=== PATIENT | female | born 1945 | race Caucasian/White ===

== ENCOUNTER 2018-04-29 17:01 | Inpatient (IN) ==
--- NOTE | 2018-04-29 17:33 | ED ---
HPI General Chief Complaint: Arrhythmia/Palpitations Stated Complaint: Cardiac/Phy Sent Time Seen by Provider: 04/29/18 17:15 Source: patient, family and old records reviewed Mode of arrival: EMS Limitations: no limitations History of Present Illness HPI narrative: the patient is a 72-year-old female with past medical history significant for Prinzmetal angina, CAD and internal mammary artery bypass, carotid artery stenosis, hyperlipidemia, HTN, mitral regurgitation and PAD with claudication presenting after she was seen at her salesperson burial needs's office today. Dr. Gannon referred her to the ED due to symptomatic bradycardia in his office. She was advised to hold her Cardizem however she did not take neither her Cardizem or her lisinopril today. Patient on arrival with a blood pressure of 209/93 and a pulse of 45 bpm MD complaint: irregular heart beat (slow hear rate with dizziness) Onset (ago): unknown Duration: now resolved Severity: similar to previous episodes Context: occurred during rest Associated symptoms: near-syncope Related Data Home Medications Medication Instructions Recorded Confirmed clopidogrel [Plavix] 75 mg PO DAILY 04/29/18 04/29/18 lisinopril 20 mg PO DAILY 04/29/18 04/29/18 oxycodone-acetaminophen [Percocet] 1 tab PO Q6H PRN 04/29/18 04/29/18 Previous Rx's Medication Instructions Recorded atorvastatin 20 mg PO HS tab 05/01/18 Allergies Allergy/AdvReac Type Severity Reaction Status Date / Time levofloxacin AdvReac Severe FEEL ILL Verified 04/29/18 19:15 niacin AdvReac Severe Back Pain Verified 04/29/18 19:15 CRESTOR AdvReac Severe Back Pain Uncoded 04/29/18 19:15 VYTORIN AdvReac Severe Back Pain Uncoded 04/29/18 19:15 Review of Systems ROS: all other systems reviewed are negative PMFSH History History Provided By: Patient Medical History Medical History CAD (coronary artery disease) (Acute) High cholesterol (Acute) Hypertension (Acute) Peripheral vascular disease (Acute) Prinzmetal's angina (Acute) Surgical History Surgical History History of appendectomy (Acute) History of cardiac cath (Acute) History of open heart surgery (Acute) Family History Family History Other Coronary artery disease Social History Social History Substance History: No History of Abuse Second Hand Smoke Exposure: No Smoking Status: Former smoker Tobacco Type: Cigarettes How Often Do You Have a Drink Containing Alcohol: Never Recent Travel in [facility] within the Last 8 Weeks: No Recent Out of Country Travel within the Last 8 Weeks: No Exam Narrative Exam Narrative: GENERAL: Alert and oriented in no distress SKIN: Focused skin assessment warm/dry. HEAD: Atraumatic. Normocephalic. EYES: Pupils equal and round. No scleral icterus. No injection or drainage. ENT: No nasal bleeding or discharge. Mucous membranes pink and moist. NECK: Trachea midline. No JVD. CARDIOVASCULAR: Regular rate and rhythm. No murmur appreciated. RESPIRATORY: No accessory muscle use. Clear to auscultation. Breath sounds equal bilaterally. GASTROINTESTINAL: Abdomen soft, non-tender, nondistended. Hepatic and splenic margins not palpable. MUSCULOSKELETAL: No obvious deformities. No clubbing. No cyanosis. No edema. NEUROLOGICAL: Awake and alert. No obvious cranial nerve deficits. Motor grossly within normal limits. Normal speech. PSYCHIATRIC: Appropriate mood and affect; insight and judgment normal. Course Hospital Course: Patient with elevated blood pressure and low heart rate not able to receive beta blockers or calcium channel blockers. We do not have hydralazine in formulary in this hospital. We will give clonidine and if blood pressure does not improve we will give her some Vasotec. Reevaluation(s) Reevaluation #1: Repeat blood pressure 199/79 on the right 179/74 on the left. Patient without any chest pain, no discomfort in the epigastric area no back pain. Time: 18:33 Initial Documented Vital Signs Temperature 98.0 F 04/29/18 17:04 Pulse Rate 45 L 04/29/18 17:04 Respiratory Rate 12 04/29/18 17:04 Blood Pressure 219/93 H 04/29/18 17:04 Pulse Oximetry 98 04/29/18 17:04 Last Documented Vital Signs Temperature 98.3 F 05/01/18 12:00 Pulse Rate 69 05/01/18 16:01 Respiratory Rate 18 05/01/18 14:10 Blood Pressure 158/74 H 05/01/18 12:00 Pulse Oximetry 96 05/01/18 04:00 Sign Out Sign Out Data: Patient Sign Out occurred on 04/29/18 at 19:36. Patient's care was discussed, and care was transferred from Ta Liang DO to Ever Vogt MD. Sign Out Comment: Patient was symptomatic bradycardia EKG changes and accelerated hypertension. She has improved while in the emergency department. She will be admitted as an inpatient as per her salesperson burial needs recommendations. care was transferred to incoming physician. Last updated by Ta Liang DO at 04/29/18 19:12 Post-Handoff Eval: Patient doing well. Reviewed labs, EKG, blood pressure findings. I had spoken with Dr. Gannon prior. Recommend admission, Dr. Maldonado will evaluate patient for possible pacemaker. Spoke with Dr. Cortez, will admit patient. Medical Decision Making MDM Narrative Medical decision making narrative: Patient with symptomatic bradycardia and Mobitz 1 AV block. She was on a second degree AV block in the office with a 2- 1. Was seen by her salesperson burial needs here in the ED. Labs are pending and she will be admitted. Medical Screen Exam Complete: Yes Emergency Medical Condition: Yes Lab Data Lab results reviewed: Yes I reviewed the patient's lab results. Result diagrams: 04/30/18 05:52 04/30/18 05:52 Lab Results 04/29/18 04/29/18 04/29/18 Range/Units 18:55 18:55 18:55 WBC 6.3 (4.0-11.0) th/mm3 RBC 4.39 (4.00-5.30) mil/mm3 Hgb 13.1 (11.6-15.3) gm/dL Hct 39.4 (35.0-46.0) % MCV 89.6 (80.0-100.0) fL MCH 29.9 (27.0-34.0) pg MCHC 33.3 (32.0-36.0) % RDW 13.3 (11.6-17.2) % Plt Count 199 (150-450) th/mm3 MPV 9.6 (7.0-11.0) fL Neut % (Auto) 62.2 (16.0-70.0) % Lymph % (Auto) 26.5 (9.0-44.0) % [place] % (Auto) 7.2 (0.0-8.0) % Eos % (Auto) 3.1 (0.0-4.0) % Baso % (Auto) 1.0 (0.0-2.0) % Neut # (Auto) 3.9 (1.8-7.7) th/mm3 Lymph # (Auto) 1.7 (1.0-4.8) th/mm3 [place] # (Auto) 0.5 (0.0-0.9) th/mm3 Eos # (Auto) 0.2 (0.0-0.4) th/mm3 Baso # (Auto) 0.1 (0.0-0.2) th/mm3 WBC Differential . Differential Comment Auto diff final Sodium 140 (136-145) meq/L Potassium 4.1 (3.5-5.1) meq/L Chloride 104 (98-107) meq/L Carbon Dioxide 25.4 (21.0-32.0) meq/L Anion Gap 11 (5-15) meq/L BUN 23 H (7-18) mg/dL Creatinine 0.92 (0.50-1.00) mg/dL Estimated GFR 60 L (>89) mL/min Random Glucose 85 (74-106) mg/dL Calcium 9.1 (8.5-10.1) mg/dL Total Bilirubin 0.3 (0.2-1.0) mg/dL AST 22 (15-37) U/L ALT 23 (10-53) U/L Alkaline Phosphatase 76 (45-117) U/L Troponin I Less than 0.02 L (0.02-0.05) ng/mL B-Natriuretic Peptide 141 H (0-100) pg/mL Total Protein 7.5 (6.4-8.2) g/dL Albumin 4.0 (3.4-5.0) g/dL 04/30/18 04/30/18 Range/Units 05:52 05:52 WBC 6.1 (4.0-11.0) th/mm3 RBC 4.00 (4.00-5.30) mil/mm3 Hgb 11.9 (11.6-15.3) gm/dL Hct 35.9 (35.0-46.0) % MCV 89.7 (80.0-100.0) fL MCH 29.8 (27.0-34.0) pg MCHC 33.2 (32.0-36.0) % RDW 13.2 (11.6-17.2) % Plt Count 179 (150-450) th/mm3 MPV 9.4 (7.0-11.0) fL Neut % (Auto) 57.6 (16.0-70.0) % Lymph % (Auto) 29.7 (9.0-44.0) % [place] % (Auto) 7.1 (0.0-8.0) % Eos % (Auto) 4.4 H (0.0-4.0) % Baso % (Auto) 1.2 (0.0-2.0) % Neut # (Auto) 3.5 (1.8-7.7) th/mm3 Lymph # (Auto) 1.8 (1.0-4.8) th/mm3 [place] # (Auto) 0.4 (0.0-0.9) th/mm3 Eos # (Auto) 0.3 (0.0-0.4) th/mm3 Baso # (Auto) 0.1 (0.0-0.2) th/mm3 WBC Differential . Differential Comment Auto diff final Sodium 144 (136-145) meq/L Potassium 3.9 (3.5-5.1) meq/L Chloride 108 H (98-107) meq/L Carbon Dioxide 27.1 (21.0-32.0) meq/L Anion Gap 9 (5-15) meq/L BUN 19 H (7-18) mg/dL Creatinine 0.81 (0.50-1.00) mg/dL Estimated GFR 69 L (>89) mL/min Random Glucose 96 (74-106) mg/dL Calcium 8.1 L D (8.5-10.1) mg/dL Total Bilirubin (0.2-1.0) mg/dL AST (15-37) U/L ALT (10-53) U/L Alkaline Phosphatase (45-117) U/L Troponin I (0.02-0.05) ng/mL B-Natriuretic Peptide (0-100) pg/mL Total Protein (6.4-8.2) g/dL Albumin (3.4-5.0) g/dL Imaging Data Radiologist's impression: Chest X-Ray 04/29/18 18:24 CONCLUSION: No acute cardiopulmonary disease. Chest X-Ray 04/30/18 00:00 CONCLUSION: No evidence for pneumothorax. ECG Data EKG Prior to Arrival: Yes Attestation: I personally reviewed and interpreted this ECG as follows: Interpretation: Sinus rhythm with Mobitz Discharge Plan Discharge Disposition Patient Disposition: 30 Still Patient Discharge Condition Condition: Stable Discharge Order Discharge Orders: Discharge Order (Routine); Ordered 05/01/18 Ordered By: Shanda Villarreal Discharge Details Anticipated Discharge Date: 05/01/18 Diagnosis: Symptomatic bradycardia Physicians Team ED Provider: Ever Vogt Primary Care Provider: Love Carr Attending Provider: Shanda Villarreal Other Providers: Zaira Meneses ; Ekta Maldonado Discharge Interventions Interventions: ED Discharge Assessment Last Done: 04/29/18 21:24 Status ED Status: Left Department Discharge Information Discharge Date/Time: 04/29/18 21:40
--- NOTE | 2018-04-29 19:08 | XR ---
EXAM DATE: 04/29/2018 7:05 PM EDT AGE/SEX: 72 years / Female INDICATIONS: Chest discomfort and low heart rate. CLINICAL DATA: This is the patient's initial encounter. Patient reports that signs and symptoms have been present for 1 day and indicates a pain score of 6/10. MEDICAL/SURGICAL HISTORY: Cardiovascular disease. CABG. COMPARISON: . FINDINGS: Median sternotomy wires are noted status post cardiac surgery. The heart is normal. The pulmonary vas cular pattern is normal. The lungs are clear. Degenerative changes are noted involving the shoulders bilaterally. CONCLUSION: No acute cardiopulmonary disease. Electronically signed by: Richard Pettit MD 04/29/2018 7:07 PM EDT
[2018-04-29 19:50] LABS: Baso # (Auto) 0.1 th/mm3 (0.0-0.2); Eos # (Auto) 0.2 th/mm3 (0.0-0.4); Eos % (Auto) 3.1 % (0.0-4.0); Hematocrit 39.4 % (35.0-46.0); Hemoglobin 13.1 gm/dL (11.6-15.3); Lymph # (Auto) 1.7 th/mm3 (1.0-4.8); Lymph % (Auto) 26.5 % (9.0-44.0); Mean Corpuscular HGB Conc 33.3 % (32.0-36.0); Mean Corpuscular Hemoglobin 29.9 pg (27.0-34.0); Mean Corpuscular Volume 89.6 fL (80.0-100.0); Mean Platelet Volume 9.6 fL (7.0-11.0); Mono # (Auto) 0.5 th/mm3 (0.0-0.9); Mono % (Auto) 7.2 % (0.0-8.0); Neut # (Auto) 3.9 th/mm3 (1.8-7.7); Neut % (Auto) 62.2 % (16.0-70.0); Platelet Count 199 th/mm3 (150-450); Red Blood Count 4.39 mil/mm3 (4.00-5.30); Red Cell Distribution Width 13.3 % (11.6-17.2); White Blood Count 6.3 th/mm3 (4.0-11.0)
[2018-04-29 20:00] LABS: Anion Gap 11 meq/L (5-15); Aspartate Aminotransferase 22 U/L (15-37); Blood Urea Nitrogen 23 mg/dL (7-18); Calcium 9.1 mg/dL (8.5-10.1); Carbon Dioxide 25.4 meq/L (21.0-32.0); Chloride 104 meq/L (98-107); Glomerular Filtration Rate 60 mL/min (>89); Glucose,Random 85 mg/dL (74-106); Potassium 4.1 meq/L (3.5-5.1); Sodium 140 meq/L (136-145)
[2018-04-29 20:01] LABS: Alanine Aminotransferase 23 U/L (10-53)
[2018-04-29 20:05] LABS: Alkaline Phosphatase 76 U/L (45-117); Total Protein 7.5 g/dL (6.4-8.2)
[2018-04-29] MEDS ORDERED: Bisacodyl 10 MG Supp RECTAL PRN (20:38)
[2018-04-29] MEDS ORDERED: Acetaminophen 325 MG Tablet PO PRN (20:38)
--- NOTE | 2018-04-29 20:44 | P.HP ---
History of Present Illness Service: [facility] Primary Care Physician: Love Carr MD History of Present Illness: 72-year-old female with past medical history significant for coronary artery disease, peripheral arterial disease, hypertension, hyperlipidemia and Prinzmetal's angina who presents to the emergency department after evaluation in her machine fitter's office for symptomatic bradycardia. The patient reports that over the last month she has been intermittently lightheaded with shortness of breath. She endorses dyspnea on exertion that has been worse over the past week. She states she has associated blurry vision. She was seen in her machine fitter's office, Dr. Gannon, earlier today who sent her to the emergency department for further evaluation and possible pacemaker placement. She was found to have second-degree heart block on EKG. She denies any chest pain. No abdominal pain. No nausea/vomiting/diarrhea. No fever/chills. No lateralizing signs/symptoms. Review of Systems All other systems reviewed negative except as stated in HPI [facility] - History History Provided By: Patient - Medical History Medical History: Medical History (Last Updated 04/29/18 @ 20:41 by Enriqueta Cortez MD) CAD (coronary artery disease) High cholesterol Hypertension Peripheral vascular disease Prinzmetal's angina - Surgical History Surgical History: Surgical History (Last Updated 04/29/18 @ 19:06 by Mandy Villarreal) History of appendectomy History of cardiac cath History of open heart surgery - Family History Family History: Family History (Last Updated 04/29/18 @ 20:42 by Enriqueta Cortez MD) Other Coronary artery disease - Tobacco History Second Hand Smoke Exposure: No Tobacco Use In Past 30 Days: No Smoking Status: Former smoker - Alcohol History How Often Do You Have a Drink Containing Alcohol: Never - Substance Use History Substance History: No History of Abuse - Travel History Recent Travel in the [place] Within the Last 8 Weeks: No Recent Travel Out of the Country Within the Last 8 Weeks: No - Immunization History Tetanus Immunization: Unsure Hx Influenza Vaccine This Season: Yes Medications and Allergies Allergies Allergy/AdvReac Type Severity Reaction Status Date / Time levofloxacin AdvReac Severe FEEL ILL Verified 04/29/18 19:15 niacin AdvReac Severe Back Pain Verified 04/29/18 19:15 CRESTOR AdvReac Severe Back Pain Uncoded 04/29/18 19:15 VYTORIN AdvReac Severe Back Pain Uncoded 04/29/18 19:15 Home Medications Medication Instructions Recorded Confirmed Type atorvastatin 40 mg PO DAILY 04/29/18 04/29/18 History clopidogrel [Plavix] 75 mg PO DAILY 04/29/18 04/29/18 History lisinopril 20 mg PO DAILY 04/29/18 04/29/18 History oxycodone-acetaminophen [Percocet] 1 tab PO Q6H PRN 04/29/18 04/29/18 History Exam Vital signs: Vital Signs 04/29/18 17:04 04/29/18 17:38 04/29/18 18:02 Temperature 98.0 F Pulse Rate 45 L 41 L 39 L Respiratory Rate 12 20 22 Blood Pressure 219/93 H 217/112 H 187/78 H Pulse Oximetry 98 99 98 04/29/18 18:06 04/29/18 18:50 Temperature Pulse Rate 41 L Respiratory Rate 18 37 H Blood Pressure 225/87 H 147/64 H Pulse Oximetry 98 98 Intake & Output 04/29/18 04/29/18 04/30/18 06:59 18:59 06:59 Weight 73.936 kg Narrative: Gen.: No acute distress Head: Normocephalic. Atraumatic. EENT: Pupils equal round and reactive to light. Nose without drainage. Airway intact. Throat without injection. Cardiovascular: Regular rate and rhythm. No murmurs, rubs or gallops. Respiratory: Lungs clear to auscultation bilaterally. No wheezes or rhonchi. Abdomen: Soft, nontender, nondistended. No peritoneal signs. Musculoskeletal: No gross deformities. No edema. Skin: No obvious rashes or erythema. Neuro: Sensory and motor grossly intact. Cranial nerves II through XII grossly intact. Results - Labs CBC & Chem 7: 04/29/18 18:55 04/29/18 18:55 Labs: Laboratory Results - last 24 hr 04/29/18 04/29/18 04/29/18 18:55 18:55 18:55 WBC 6.3 RBC 4.39 Hgb 13.1 Hct 39.4 MCV 89.6 MCH 29.9 MCHC 33.3 RDW 13.3 Plt Count 199 MPV 9.6 Neut % (Auto) 62.2 Lymph % (Auto) 26.5 [place] % (Auto) 7.2 Eos % (Auto) 3.1 Baso % (Auto) 1.0 Neut # (Auto) 3.9 Lymph # (Auto) 1.7 [place] # (Auto) 0.5 Eos # (Auto) 0.2 Baso # (Auto) 0.1 WBC Differential . Differential Comment Auto diff final Sodium 140 Potassium 4.1 Chloride 104 Carbon Dioxide 25.4 Anion Gap 11 BUN 23 H Creatinine 0.92 Estimated GFR 60 L Random Glucose 85 Calcium 9.1 Total Bilirubin 0.3 AST 22 ALT 23 Alkaline Phosphatase 76 Troponin I Less than 0.02 L B-Natriuretic Peptide 141 H Total Protein 7.5 Albumin 4.0 - Imaging Impressions Chest X-Ray 04/29/18 18:24 CONCLUSION: No acute cardiopulmonary disease. Caprini VTE Risk Assessment Caprini VTE Risk Assessment: Moderate/High Risk (score >= 2) Caprini Risk Assessment Model: Point Value = 1 Point Value = 2 Point Value = 3 Point Value = 5 Age 41-60 Minor surgery BMI > 25 kg/m2 Swollen legs Varicose veins or History of unexplained or recurrent spontaneous Oral contraceptives or hormone replacement Sepsis (< 1 month) Serious lung disease, including pneumonia (< 1 month) Abnormal pulmonary function Acute myocardial infarction Congestive heart failure (< 1 month) History of inflammatory bowel disease Medical patient at bed rest Age 61-74 Arthroscopic surgery Major open surgery (> 45 min) Laparoscopic surgery (> 45 min) Malignancy Confined to bed (> 72 hours) Immobilizing plaster cast Central venous access Age >= 75 History of VTE Family history of VTE Factor V Leiden Prothrombin [id number] Lupus anticoagulant Anticardiolipin antibodies Elevated serum homocysteine Heparin-induced thrombocytopenia Other congenital or acquired thrombophilia Stroke (< 1 month) Elective arthroplasty Hip, pelvis, or leg fracture Acute spinal cord injury (< 1 month) Prophylaxis Regimen: Total Risk Factor Score Risk Level Prophylaxis Regimen 0-1 Low Early ambulation 2 Moderate Order ONE of the following: *Sequential Compression Device (SCD) *Heparin 5000 units SQ BID 3-4 Higher Order ONE of the following medications: *Heparin 5000 units SQ TID *Enoxaparin/Lovenox 40 mg SQ daily (WT < 150 kg, CrCl > 30 mL/min) *Enoxaparin/Lovenox 30 mg SQ daily (WT < 150 kg, CrCl > 10-29 mL/min) *Enoxaparin/Lovenox 30 mg SQ BID (WT < 150 kg, CrCl > 30 mL/min) AND/OR *Sequential Compression Device (SCD) 5 or more Highest Order ONE of the following medications: *Heparin 5000 units SQ TID (Preferred with Epidurals) *Enoxaparin/Lovenox 40 mg SQ daily (WT < 150 kg, CrCl > 30 mL/min) *Enoxaparin/Lovenox 30 mg SQ daily (WT < 150 kg, CrCl > 10-29 mL/min) *Enoxaparin/Lovenox 30 mg SQ BID (WT < 150 kg, CrCl > 30 mL/min) AND *Sequential Compression Device (SCD) Assessment and Plan - Plan Assessment/plan: 1. Symptomatic bradycardia, heart block Telemetry Cardiology consulted, Dr. Maldonado, for possible pacemaker placement 2. CAD/PVD Holding home Plavix for possible intervention tomorrow 3. Hypertension Holding antihypertensives secondary to bradycardia 4. Hyperlipidemia Continue home statin 5. Chronic back pain Continue home pain medication FEN N.p.o. Electrolytes: Monitor and replete as needed NS at 100 cc/hour Holding pharmacologic anticoagulation for possible intervention
[2018-04-29] MEDS: Senna/Docusate Sodium 8.6/50 MG Tablet PO SCH (21:45)
[2018-04-29] MEDS: Sod Chloride 0.9% Inj 1,000 ML IV.CONT SCH (22:02)
[2018-04-29] MEDS: oxyCODONE/Acetaminophen 10/325 Tablet PO PRN (23:06)
[2018-04-30] MEDS: Sod Chloride 0.9% Inj 1,000 ML IV.CONT SCH ×2 (06:01→20:35)
[2018-04-30 06:15] LABS: Baso # (Auto) 0.1 th/mm3 (0.0-0.2); Baso % (Auto) 1.2 % (0.0-2.0); Eos # (Auto) 0.3 th/mm3 (0.0-0.4); Eos % (Auto) 4.4 % (0.0-4.0); Hematocrit 35.9 % (35.0-46.0); Hemoglobin 11.9 gm/dL (11.6-15.3); Lymph # (Auto) 1.8 th/mm3 (1.0-4.8); Lymph % (Auto) 29.7 % (9.0-44.0); Mean Corpuscular HGB Conc 33.2 % (32.0-36.0); Mean Corpuscular Hemoglobin 29.8 pg (27.0-34.0); Mean Corpuscular Volume 89.7 fL (80.0-100.0); Mean Platelet Volume 9.4 fL (7.0-11.0); Mono # (Auto) 0.4 th/mm3 (0.0-0.9); Mono % (Auto) 7.1 % (0.0-8.0); Neut # (Auto) 3.5 th/mm3 (1.8-7.7); Neut % (Auto) 57.6 % (16.0-70.0); Platelet Count 179 th/mm3 (150-450); Red Cell Distribution Width 13.2 % (11.6-17.2); White Blood Count 6.1 th/mm3 (4.0-11.0)
[2018-04-30 07:03] LABS: Calcium 8.1 mg/dL (8.5-10.1); Carbon Dioxide 27.1 meq/L (21.0-32.0); Potassium 3.9 meq/L (3.5-5.1)
[2018-04-30] MEDS ORDERED: Sodium Chlor 0.9% Inj 250 ML ONE (07:08)
[2018-04-30] MEDS ORDERED: Sodium Chlor 0.9% Inj 250 ML IV.SIG ONE (07:28)
[2018-04-30] MEDS ORDERED: Sodium Chlor 0.9% Inj 500 ML IV.SIG ONE (07:28)
--- NOTE | 2018-04-30 08:45 | P.PN ---
Subjective Interval history: seen 9:05 am back from procedure- PM placement complains of pain PM site Physical Exam Vital signs: Vital Signs 04/29/18 17:04 04/29/18 17:38 04/29/18 18:02 Temperature 98.0 F Pulse Rate 45 L 41 L 39 L Respiratory Rate 12 20 22 Blood Pressure 219/93 H 217/112 H 187/78 H Pulse Oximetry 98 99 98 04/29/18 18:06 04/29/18 18:50 04/29/18 21:00 Temperature 98.7 F Pulse Rate 41 L 65 Respiratory Rate 18 37 H 16 Blood Pressure 225/87 H 147/64 H 168/83 H Pulse Oximetry 98 98 99 04/29/18 22:00 04/30/18 00:00 04/30/18 01:00 Temperature 98.7 F Pulse Rate 63 68 67 Respiratory Rate 16 Blood Pressure 173/78 H Pulse Oximetry 98 04/30/18 02:00 04/30/18 03:00 04/30/18 04:00 Temperature 97.4 F L Pulse Rate 55 L 70 55 L Respiratory Rate 16 Blood Pressure 160/81 H Pulse Oximetry 98 04/30/18 05:00 04/30/18 05:58 Temperature Pulse Rate 55 L 54 L Respiratory Rate Blood Pressure Pulse Oximetry Intake & Output 04/29/18 04/30/18 04/30/18 18:59 06:59 18:59 Intake Total 480 / 480 Output Total 725 / 725 Balance -245 / -245 Weight 73.936 kg 65.4 kg Intake: Oral 480 / 480 Output: Urine 725 / 725 Narrative: awake and alert, oriented x 3 anicteric neck supple no rales chest- post op dressing in place regular rhythm abdomen soft, extremities no edema Results - Labs CBC & Chem 7: 04/30/18 05:52 04/30/18 05:52 Laboratory Results - last 24 hr 04/29/18 04/29/18 04/29/18 18:55 18:55 18:55 WBC 6.3 RBC 4.39 Hgb 13.1 Hct 39.4 MCV 89.6 MCH 29.9 MCHC 33.3 RDW 13.3 Plt Count 199 MPV 9.6 Neut % (Auto) 62.2 Lymph % (Auto) 26.5 [place] % (Auto) 7.2 Eos % (Auto) 3.1 Baso % (Auto) 1.0 Neut # (Auto) 3.9 Lymph # (Auto) 1.7 [place] # (Auto) 0.5 Eos # (Auto) 0.2 Baso # (Auto) 0.1 WBC Differential . Differential Comment Auto diff final Sodium 140 Potassium 4.1 Chloride 104 Carbon Dioxide 25.4 Anion Gap 11 BUN 23 H Creatinine 0.92 Estimated GFR 60 L Random Glucose 85 Calcium 9.1 Total Bilirubin 0.3 AST 22 ALT 23 Alkaline Phosphatase 76 Troponin I Less than 0.02 L B-Natriuretic Peptide 141 H Total Protein 7.5 Albumin 4.0 04/30/18 04/30/18 05:52 05:52 WBC 6.1 RBC 4.00 Hgb 11.9 Hct 35.9 MCV 89.7 MCH 29.8 MCHC 33.2 RDW 13.2 Plt Count 179 MPV 9.4 Neut % (Auto) 57.6 Lymph % (Auto) 29.7 [place] % (Auto) 7.1 Eos % (Auto) 4.4 H Baso % (Auto) 1.2 Neut # (Auto) 3.5 Lymph # (Auto) 1.8 [place] # (Auto) 0.4 Eos # (Auto) 0.3 Baso # (Auto) 0.1 WBC Differential . Differential Comment Auto diff final Sodium 144 Potassium 3.9 Chloride 108 H Carbon Dioxide 27.1 Anion Gap 9 BUN 19 H Creatinine 0.81 Estimated GFR 69 L Random Glucose 96 Calcium 8.1 L D Total Bilirubin AST ALT Alkaline Phosphatase Troponin I B-Natriuretic Peptide Total Protein Albumin - Imaging Impressions Chest X-Ray 04/29/18 18:24 CONCLUSION: No acute cardiopulmonary disease. Assessment and Plan - Plan 72 years old S/P PM placement 04/30 for heart block Telemetry Cardiology ff CAD/PVD Hypertension - restart home meds- LIsinopril 20 mg daily - restart Plavix once cleared with Cardiology Hyperlipidemia Continue home statin Chronic back pain - Continue home pain medication
[2018-04-30] MEDS ORDERED: ceFAZolin 2 GM Premix Inj 2 GM/50 ML PIGGYBACK IV.SIG SCH (09:00)
[2018-04-30] MEDS ORDERED: fentaNYL Citrate Inj 100 MCG/2 ML Ampul ONE (09:06)
[2018-04-30] MEDS ORDERED: Morphine Sulfate Inj 2 MG/ML Vial IV.PUSH ONE (09:16)
[2018-04-30] MEDS: Lisinopril 20 MG Tablet PO SCH (09:28)
--- NOTE | 2018-04-30 10:32 | XR ---
EXAM DATE: 04/30/2018 10:24 AM EDT AGE/SEX: 72 years / Female INDICATIONS: Post pacemaker. CLINICAL DATA: This is the patient's initial encounter. Patient reports that signs and symptoms have been present for 1 day and indicates a pain score of 3/10. MEDICAL/SURGICAL HISTORY: Cardiovascular disease. CABG. Pacemaker. COMPARISON: [facility] [place]ST 1V SINGLE AP, 04/29/2018. . FINDINGS: Cardiomegaly, sternotomy wires and a pacer device from a left subclavian transvenous approach noted. There is no pneumothorax. There is streaky infiltrate suspected in the right middle lobe. CONCLUSION: No evidence for pneumothorax. Electronically signed by: Sirnath Sigala MD 04/30/2018 10:31 AM EDT
[2018-04-30] MEDS: Senna/Docusate Sodium 8.6/50 MG Tablet PO SCH ×2 (10:41→21:12)
--- NOTE | 2018-04-30 13:16 | ECG ---
Date Performed: 04/29/2018 Time Performed: 17:19:39 PTAGE: 72 years EKG: SINUS BRADYCARDIA MODERATE ST DEPRESSION ABNORMAL ECG INTERPRETATION BASED ON A DEFAULT AGE OF 40 YEARS PREVIOUS TRACING : 04/29/2018 17.18 DOCTOR: Ever Appiah Interpretating Date/Time 04/30/2018 13:10:42
[2018-04-30] MEDS: oxyCODONE/Acetaminophen 10/325 Tablet PO PRN ×3 (13:43→21:13)
[2018-04-30] MEDS: ceFAZolin 2 GM/NS 100 ML IV; Q8H IV.SIG SCH ×2 (16:01)
--- NOTE | 2018-04-30 19:35 | P.PCNCA ---
Dual PPM Implantation - Dual PPM Implantation Procedure Date: 04/30/18 Dual PPM Implantation: PROCEDURE: Dual chamber permanent pacemaker implantation. INDICATIONS FOR PROCEDURE: Farnaz Lopez is a 72-year-old F with 2:1 AV block, very symptomatic who was referred for pacer insertion. She is on no negative chronotropic medication. The risks, the nature, and the benefit of the procedure were clearly stated to the patient. The risks include pneumothorax, cardiac perforation, stroke and even . The patient understood and agreed to proceed. PROCEDURE After written informed consent was obtained, the patient was transferred to the EP lab and was prepped and draped in the usual sterile fashion. Conscious sedation was initiated and maintained throughout the procedure by the anesthesiologist. Once sedation was verified, the left infraclavicular area was with 2% Xylocaine. Using modified Seldinger technique, the left subclavian vein was cannulated on two occasions and two guidewires were advanced. Then, using a #11 blade scalpel, a 2 cm was made two fingerbreadths below the left clavicle. This incision was then taken down through the deep fascial layer using Bovie cautery and blunt dissection. Into the inferomedial direction, device pocket was dissected, then the wire was dissected into the pocket. A 2- 0 Vicryl suture was placed around the wire to prevent backbleeding. At this point, over the lateral wire, an 7-Amharic dilator and introducer was advanced. As the dilator and wire were removed, an active fixation right ventricular pacing and sensing lead was advanced. After adequate pacing and sensing thresholds were obtained, the lead was secured in the pocket using 2-0 Ethibond suture. Then, over the remaining wire, an 7-Amharic dilator and introducer was advanced. As the dilator and wire were removed, an active fixation right atrial pacing and sensing lead was advanced. After adequate pacing and sensing thresholds were obtained, the lead was secured into the pocket using 2-0 Ethibond suture. At that point, the pocket was copiously irrigated using antibiotic solution. This was connected to the generator and placed into the pocket. I did proceed with wound closure. The deep fascial layer was approximated using 2-0 Vicryl suture in a continuous fashion. The subcutaneous layer was approximated with 2-0 Vicryl suture in a continuous fashion. The subcuticular layer was approximated with 2-0 Vicryl suture in a continuous fashion. Dermabond adhesive was applied to the wound followed by sterile pressure dressing. There was no complication. The patient tolerated procedure. Blood loss minimal. IMPLANTED HARDWARE The permanent pacemaker is a Infomous. Model # W1DR01, serial number [id number]. The right atrial pacing and sensing lead is a Medtronic model number 4076-52, serial number [id number]. The right ventricular pacing and sensing lead is a Medtronic model number 4076- 58, serial number [id number]. THRESHOLDS The right atrial pacing threshold in the bipolar mode was 1.2V @ 0.4 milliseconds, lead impedance 560 ohms and P-wave at 2.1 millivolts. The right ventricular pacing threshold in the bipolar mode was 1.0@0.4 milliseconds, lead impedance 1115 ohms and R-wave at the 4.5 millivolts. SETTINGS The device was set in the DDD60 , upper limit 130 beats per minute. Hysteresis and mode switch are on. CONCLUSIONS: Successful permanent pacemaker implantation. COMMENT AND RECOMMENDATION The patient will be transferred to the telemetry unit and will be observed. When stable, the patient can be discharged home.
--- NOTE | 2018-04-30 21:09 | MB ---
cc: Ekta Maldonado MD DATE: 04/30/2018 REASON FOR CONSULTATION: AV block and syncope. HISTORY OF PRESENT ILLNESS: Mrs. Lopez is a 72-year-old female with a history of coronary artery disease, peripheral vascular disease, high blood pressure, hyperlipidemia, angina. She was seen at the office by Dr. Gannon due to severe bradycardia, admitted due to dizziness and lightheadedness. I was consulted for further evaluation and management. The chart was reviewed. The patient was evaluated. ALLERGIES: LEVOFLOXACIN, NIACIN, CRESTOR AND VYTORIN. SOCIAL HISTORY: Negative for smoking and drinking. FAMILY HISTORY: Noncontributory to her current medical condition. MEDICATIONS AT HOME: 1. Atorvastatin 40 mg a day. 2. Plavix 75 mg a day. 3. Lisinopril 4. [place]. REVIEW OF SYSTEMS: Currently, the patient is no chest pain, no chest discomfort, some shortness of breath, but no fever. PHYSICAL EXAMINATION: GENERAL: Alert, fully oriented. VITAL SIGNS: Blood pressure 181/78, pulse 70 and respiratory rate 18. LUNGS: Ventilated. CARDIOVASCULAR: S1, S2. Regular. ABDOMEN: Soft. No mass, no bruit. EXTREMITIES: No edema. LABORATORY DATA: Electrocardiogram indicated sinus rhythm, 2:1 AV block. ASSESSMENT AND RECOMMENDATIONS: Hemoglobin 11.9, white blood cell 6.1. Potassium 3.9, creatinine 0.81. ASSESSMENT RECOMMENDATIONS: Ms. Lopez has no negative inotropic medication. She has symptomatic bradycardia since 2:1 AV block. This is a type 1 indication for permanent pacemaker. The risks, the nature and the benefits of the procedure are clearly stated to her. Risks include pneumothorax, cardiac perforation, stroke and even . She understood and agreed to proceed. Permanent pacemaker will be performed during hospitalization. Ekta Maldonado MD HS/ct , 05:49 PM , 05:56 PM
[2018-05-01] MEDS: ceFAZolin 2 GM/NS 100 ML IV; Q8H IV.SIG SCH ×4 (00:35→09:46)
[2018-05-01] MEDS: Sod Chloride 0.9% Inj 1,000 ML IV.CONT SCH (03:47)
[2018-05-01] MEDS: oxyCODONE/Acetaminophen 10/325 Tablet PO PRN ×3 (04:15→13:51)
[2018-05-01 05:10] VITALS: O2SAT 96
--- NOTE | 2018-05-01 08:20 | P.PN ---
Subjective Interval history: no complains of pain telemetry- paced rhythm Physical Exam Vital signs: Vital Signs 04/30/18 09:07 04/30/18 10:00 04/30/18 11:00 Temperature 98.7 F Pulse Rate 70 68 72 Respiratory Rate 18 Blood Pressure 181/78 H Pulse Oximetry 98 04/30/18 12:00 04/30/18 13:00 04/30/18 14:00 Temperature 98.7 F Pulse Rate 62 72 72 Respiratory Rate 18 Blood Pressure 151/63 H Pulse Oximetry 98 04/30/18 15:00 04/30/18 16:00 04/30/18 17:00 Temperature 98.4 F Pulse Rate 65 68 64 Respiratory Rate 16 Blood Pressure 155/86 H Pulse Oximetry 98 04/30/18 18:00 04/30/18 19:00 04/30/18 19:29 Temperature 99.0 F Pulse Rate 78 79 85 Respiratory Rate 20 Blood Pressure 143/82 H Pulse Oximetry 98 04/30/18 20:00 04/30/18 20:20 04/30/18 20:30 Temperature 99.0 F Pulse Rate 75 114 H 78 Respiratory Rate 16 Blood Pressure 130/72 Pulse Oximetry 95 04/30/18 21:00 04/30/18 22:00 04/30/18 23:00 Temperature Pulse Rate 78 70 70 Respiratory Rate Blood Pressure Pulse Oximetry 04/30/18 23:29 05/01/18 00:00 05/01/18 00:30 Temperature 98.6 F 98.6 F Pulse Rate 78 107 H 73 Respiratory Rate 16 16 Blood Pressure 142/60 H 142/60 H Pulse Oximetry 95 95 05/01/18 04:00 05/01/18 05:00 05/01/18 06:00 Temperature 98.3 F Pulse Rate 73 69 74 Respiratory Rate 16 16 Blood Pressure 155/74 H Pulse Oximetry 96 05/01/18 07:00 Temperature Pulse Rate 71 Respiratory Rate Blood Pressure Pulse Oximetry Intake & Output 04/30/18 05/01/18 05/01/18 18:59 06:59 18:59 Intake Total 1969 / 1969 200 / 200 Output Total 1600 / 1600 1000 / 1000 Balance 370 / 370 -800 / -800 Intake: IV 1250 / 1250 200 / 200 NS Inj 250 ML @ 0 mls/hr .ROUTE 250 / 250 .[facility] Rx#:[id number] NS Inj 1,000 ML @ 100 mls/hr IV 1000 / 1000 .CONT .Q10H [facility] Rx#:[id number] Ancef Inj 2,000 MG In NS Inj 80 200 / 200 ML @ 200 mls/hr IV.SIG Q8H [facility] Rx#:[id number] Oral 720 / 720 Output: Urine 1600 / 1600 1000 / 1000 Other: # Voids 1 Date of Last Bowel Movement 04/29/18 04/29/18 Narrative: awake and alert, oriented x 3 anicteric neck supple no rales chest- post op dressing in place regular rhythm abdomen soft, extremities LUE- s/s in place, good radial ulses no LE edema Results - Labs CBC & Chem 7: 04/30/18 05:52 04/30/18 05:52 - Imaging Impressions Chest X-Ray 04/30/18 00:00 CONCLUSION: No evidence for pneumothorax. - Procedures 04/30- PM placement Assessment and Plan - Plan 72 years old S/P PM placement 04/30 for heart block Telemetry Cardiology ff CAD/PVD Hypertension - restart home meds- Lisinopril 20 mg daily - restart Plavix Hyperlipidemia Continue home statin- states she takes 20 mg hs- not 40 Chronic back pain - Continue home pain medication DC today if cleared with Dr. Maldonado OP ff up with PCP- Dr. Carr OP ff up with Dr Maldonado
[2018-05-01] MEDS: Lisinopril 20 MG Tablet PO SCH (09:44)
[2018-05-01] MEDS: Senna/Docusate Sodium 8.6/50 MG Tablet PO SCH (09:45)
[2018-05-01 11:46] VITALS: RESP 18
[2018-05-01 13:36] VITALS: BP 158/74; TEMP 98.3
--- NOTE | 2018-05-01 16:26 | P.PN ---
Subjective Interval history: Feeling better Physical Exam Vital signs: Vital Signs 04/30/18 17:00 04/30/18 18:00 04/30/18 19:00 Temperature Pulse Rate 64 78 79 Respiratory Rate Blood Pressure Pulse Oximetry 04/30/18 19:29 04/30/18 20:00 04/30/18 20:20 Temperature 99.0 F 99.0 F Pulse Rate 85 75 114 H Respiratory Rate 20 16 Blood Pressure 143/82 H 130/72 Pulse Oximetry 98 95 04/30/18 20:30 04/30/18 21:00 04/30/18 22:00 Temperature Pulse Rate 78 78 70 Respiratory Rate Blood Pressure Pulse Oximetry 04/30/18 23:00 04/30/18 23:29 05/01/18 00:00 Temperature 98.6 F 98.6 F Pulse Rate 70 78 107 H Respiratory Rate 16 16 Blood Pressure 142/60 H 142/60 H Pulse Oximetry 95 95 05/01/18 00:30 05/01/18 04:00 05/01/18 05:00 Temperature 98.3 F Pulse Rate 73 73 69 Respiratory Rate 16 Blood Pressure 155/74 H Pulse Oximetry 96 05/01/18 06:00 05/01/18 07:00 05/01/18 08:00 Temperature 97.8 F 98.8 F Pulse Rate 74 74 74 Respiratory Rate 16 18 18 Blood Pressure 163/75 H 163/75 H Pulse Oximetry 05/01/18 09:00 05/01/18 10:00 05/01/18 11:00 Temperature Pulse Rate 74 74 73 Respiratory Rate Blood Pressure Pulse Oximetry 05/01/18 12:00 05/01/18 14:10 Temperature 98.3 F Pulse Rate 75 Respiratory Rate 18 Blood Pressure 158/74 H Pulse Oximetry Intake & Output 04/30/18 05/01/18 05/01/18 18:59 06:59 18:59 Intake Total 1970 / 1970 200 / 200 100 / 100 Output Total 1600 / 1600 1000 / 1000 Balance 370 / 370 -800 / -800 100 / 100 Intake: IV 1250 / 1250 200 / 200 100 / 100 NS Inj 250 ML @ 0 mls/hr .ROUTE 250 / 250 .[facility] Rx#:[id number] NS Inj 1,000 ML @ 100 mls/hr IV 1000 / 1000 .CONT .Q10H [facility] Rx#:[id number] Ancef Inj 2,000 MG In NS Inj 80 200 / 200 100 / 100 ML @ 200 mls/hr IV.SIG Q8H [facility] Rx#:[id number] Oral 720 / 720 Output: Urine 1600 / 1600 1000 / 1000 Other: # Voids 1 Date of Last Bowel Movement 04/29/18 04/29/18 - Constitutional no acute distress - Routine HEENT Exam Head: Present: normocephalic Eye: Present: PERRL ENT: Present: mucous membranes moist - Routine Respiratory Exam Present: CTA bilaterally - Routine Cardiovascular Exam Present: RRR - Routine Abdominal Exam Present: soft - Routine Neurological Exam Present: alert, oriented X3 Results - Labs CBC & Chem 7: 04/30/18 05:52 04/30/18 05:52 - Procedures 9/5- PM placement Assessment and Plan - Assessment (1) Bradycardia Code(s): R00.1 - Bradycardia, unspecified Status: Acute Plan: AV pacing now doing better (2) Pacemaker Code(s): Z95.0 - Presence of cardiac pacemaker Status: Acute Plan: Device well functioning Clean surgical wound Can be DH Follow in 3 weeks
[2018-05-01 16:43] VITALS: PULSE 69
--- NOTE | 2018-05-01 23:49 | ECG ---
Date Performed: 05/01/2018 Time Performed: 08:15:28 PTAGE: 72 years EKG: Sinus rhythm Ventricular pacing. Pacemaker rhythm - no further analysis Abnormal ECG Since the PREVIOUS TRACING , no significant change noted DOCTOR: Viktor Trujillo Interpretating Date/Time 05/01/2018 23:48:25
--- NOTE | 2018-05-02 00:42 | ECG ---
Date Performed: 04/30/2018 Time Performed: 16:51:14 PTAGE: 72 years EKG: Sinus rhythm Ventricular pacing Abnormal ECG PREVIOUS TRACING : 04/29/2018 17.19 Compared to previous tracing, previously 2:1 AV block DOCTOR: Viktor Trujillo Interpretating Date/Time 05/02/2018 00:41:01
--- NOTE | 2018-05-02 12:38 | CATHPROC ---
[email or web address] HIS Report Study Information Study Number Admission Scheduled Start Study Start [id number] Apr 29 2018 8:18PM 04/30/2018 Apr 30 2018 7:13AM [place] [facility] Cardiac Pacer/ICD Admit Source Facility Department Emergency department [facility] Photography Professor Physician and Clinical Staff Initial Ekta Slaughter Alarm Technician Marivel Segura,POLYSOMNOGRAPHIC TECHNICIAN TECH2 Other Anesthesia, SUPERVISOR INSPECTION Recorder Callie Thorne ,BSN Recorder Layne Clemens,RN Scrub Sanjeev Lane,RT(R) Procedures Performed Procedure Lead Insertion Equipment Time Costume Shop Coordinator Description Size Mfg Part Number Used/Scraped DERMABOND, ADHESIVE SKIN [id number] 07:16 CORDIS/PACER * Used GLUE MINI *[id number] 07:16 [employer] BLANKET,WARM AIR CCL * Used *[id number] TP-1103 07:16 [employer] SUTURE, STRIP PLUS 1/2" * Used *[id number] 07:16 [employer] PACER REED, LIMB * 2530 *[id number] Used [id number] 07:16 [employer] PACER PACK, PACER CUSTOM * Used *[id number] 07:43 Needle Sponge Count 2 22 Used 07:43 Needle Sponge Count 20 200 Used 07:44 Needle Sponge Count 3 3 Used 07:45 Needle Sponge Count 4 4 Used SUTURE, 0 ETHIBOND [CT1] (CX21D), 8pk SUTURE, 2-0 VICRYL [CT1] ([id number]) SUTURE, 2-0 VICRYL [CT1] ([id number]) [facility] PAD, ELECTROSURGICAL 07:16 * [id number] *[id number] Used SURGICAL GROUNDING ORANGE LEAD, CAPSURE FIX NOVUS, 4076-52CM 08:17 VITATRON [employer] 52CM Used 52CM *[id number] LEAD, CAPSURE FIX NOVUS, 4076-58CM 08:13 VITATRON [employer] 58CM Used 58CM *[id number] 08:22 VITATRON [employer] PACEMAKER, SEVERO XT DR [place]-DDDR [id number] Used [id number] 07:16 [employer]. / * Used *55640 Equipment Model, Serial, Lot Number and Expiration Data Description Model Number Serial Number Lot Number Expiration Date LEAD, CAPSURE FIX NOVUS, 52CM 4076-52CM [id number] 03-18-2020 LEAD, CAPSURE FIX NOVUS, 58CM 4076-58cm [id number] 02-20-2020 PACEMAKER, SEVERO XT DR [id number] 09-22-2019 Labs Hgb (g/dl) Hct (%) WBC (l/cumm) Platelets (thousands) 11.60-17.00 35.00-51.00 4.00-11.00 150.00-450.00 11.9 35.9 6.1 179 Glucose (mg/dl) BUN (mg/dl) Creatinine (mg/dl) BUN:Creatinine (1:x) 74.00-106.00 7.00-18.00 0.50-1.30 10.00-20.00 96 19 0.8 23.8 Na (meq/l) K (meq/l) 136.00-145.00 3.50-5.10 144 3.9 Troponin I (ng/ml) CPK-MB (ng/ML) 0.02-0.05 0.50-3.60 0.02 Not Drawn Medication Medication Total Dose (Bolus/Oral) Medication Total Dosage/Unit 2% XYLOCAINE 30 mL Medications (Bolus/Oral) Medication Time Given Dosage/Unit Administered By Reason 2% XYLOCAINE 04/30/2018 8:08:39 AM 30 mL Ekta Maldonado 30 mL 2% XYLOCAINE given in lab by Ekta Maldonado in Left Chest via Subcutaneous. Ordered by Kamari Maldonado. Medication (Drip) Medication Time Given Dosage/Unit Concentration/Unit Diluent (ml) Solution ANCEF 04/30/2018 8:06:15 AM 2 g 2 g ANCEF given in lab by Anesthesia, SUPERVISOR INSPECTION via Peripheral IV. Ordered by Ekta Maldonado. VANCOMYCIN DRIP 04/30/2018 8:06:49 AM 1 g 1 g VANCOMYCIN DRIP given in lab by Anesthesia, SUPERVISOR INSPECTION via Peripheral IV. Ordered by Ekta Maldonado. Initial Case Assessment Cardiovascular HR NIBP 37 211/86 Edema Present Skin color Skin None Normal Warm Dry Neurological State Oriented to time-place- Alert Moves all extremities person Respiration - General Respiration Rate SpO2 (%) O2 (lpm) (B/min) 15 100 6 Chronological Log Time Study Chronological Log 7:22:38 Patient arrived via Bed. 7:22:39 Patient Name, D.O.B, / Armband Verified By R.N. 7:22:43 Consent signed by the physician and the patient and verified by the Photography Professor staff. 7:22:44 Pre-op and post- op instructions given; patient acknowledges understanding of instructions. 7:22:45 Anesthesia at bedside. Assumes care of patient. 7:22:50 Patient has been NPO for More than 6Hrs. 7:22:50 Skin Breakdown- none per patient 7:23:04 Dentures attempted to be removed; patient could not remove at this time. Anesthesia aware, s rita ok to stay in 7:27:29 Patient Warmer Placed on the Table. 7:27:31 Disposable Defibrillator Pads Placed On Patient. 7:27:35 Mohit Prominences Protected 7:27:42 A # 20 IV was noted in the Antecubital (right). Grade = 0 NS at KVO 7:27:52 A # 20 IV was noted in the Antecubital (right). Grade = 0 NS at KVO 7:28:12 History and physical on the chart or being dictated. 7:31:37 Reference ECG taken Assessment: Initial Case, HR=37 BPM, KTJS=856/86 mmhg, Edema=None, Color=Normal, Skin = Warm, Dr y 7:41:19 Neurological: State=Alert, Ox3, CABRERA Respiration: Resp=15 B/min, ZdM1=607 %, O2=6 lpm 7:41:52 Left and Right Upper Chest Prepped Times Two. 7:42:18 Bovie ground pad applied to: right upper thigh 7:42:38 2% CHLORHEXIDINE GLUCONATE WASH AND NASAL SWIPE DONE PRIOR TO PROCEDURE. First Sponge And Instrument Count Done by Sanjeev Lane, RT(R). 7:42:43 Hypo's: 4, Sponges: 20, Bovie/scratch: 2 Sutures: 10, Blades: 1, Instruments: 26, Syveck Patches: ~SYVECK PATCH~ CONFIRMED WITH AM 7:54:00 Left Upper Chest Prepped Times Two. Patient draped after 3 min dry time 7:57:15 MD arrived. 7:58:25 LMA placed 8:06:15 2 g ANCEF given in lab by Anesthesia, SUPERVISOR INSPECTION via Peripheral IV. Ordered by Ekta Maldonado. 8:06:49 1 g VANCOMYCIN DRIP given in lab by Anesthesia, SUPERVISOR INSPECTION via Peripheral IV. Ordered by Kamari Maldonado. Time Out. Correct patient, procedure, procedure equipment, site and side verified with physician present. Time 8:07:33 concurred by MD, individual staff and SUPERVISOR INSPECTION. Time Out #2 - Consents verified, patient in correct position, all results are labled and display ed, safety precautions 8:07:39 taken, antibiotics administered. Time out concurred by MD, individual staff and SUPERVISOR INSPECTION in procedur e 8:07:54 Case Start 8:08:39 30 mL 2% XYLOCAINE given in lab by Ekta Maldonado in Left Chest via Subcutaneous. Ordered by Ekta Maldonado. 8:09:23 Vascular access was obtained in the Subclav. Vein (Lft. 8:09:42 Vascular access was obtained in the Subclav. Vein (Lft. 8:10:43 Surgical Incision Made. 8:11:19 A pocket was created at the L Upper Chest. 8:12:15 A sheath, 7 fr safe sheath, was advanced into the Fem Vein (right) using the Percutaneous te chnique. 8:12:45 A LEAD, CAPSURE FIX NOVUS, 58CM 58CM was inserted and positioned in the RV. 8:14:16 Lead placement verified under fluoroscopy 8:14:24 The RV lead impedance and threshold being tested. 8:16:10 The RV lead was sutured to the fascia. 8:17:42 A sheath, 7 FR SAFE SHEATH, was advanced into the Subclav. Vein (Lft using the Percutaneous technique. 8:18:06 A LEAD, CAPSURE FIX NOVUS, 52CM 52CM was inserted and positioned in the RA. 8:19:09 Lead placement verified under fluoroscopy 8:19:18 The Atrial lead impedance and threshold is being tested. 8:20:06 The Atrial lead was sutured to the fascia. 8:21:45 Pocket flushed with antibiotic solution 8:21:47 A PACEMAKER, SEVERO XT DR QAE-DDDR was connected and placed in the pocket. SECOND Sponge And Instrument Count Done by Sanjeev Lane, RT(R). 8:25:20 Hypo's: 4, Sponges: 20, Bovie/scratch: 2 Sutures: 10, Blades: 1, Instruments: 26, Syveck Patches: ~SYVECK PATCH~ CONFIRMED WITH AM 8:25:45 The pocket is being closed. 8:27:34 Implant Procedure was performed. 8:27:39 A PPM Implant . (Dual) 8:40:29 No case complications noted. 8:40:30 Cine recording checked. 8:40:50 Bedside Report will be given. 8:40:52 Implantable Device card placed in patient's chart. 8:42:55 The pocket was closed. Final Sponge And Instrument Count Done by Sanjeev Lane RT(R). 8:43:00 Hypo's: 4, Sponges: 20, Bovie/scratch: 2 Sutures: 10, Blades: 1, Instruments: ~INSTRU~, Syveck Patches: ~SYVECK PATCH~ CONFIRMED WITH S H 8:43:50 Case End (Physician broke scrub) 8:45:04 Steri-strips and a sterile dressing applied to site. 8:49:11 A sling was placed on the affected arm. 8:53:23 Patient moved to stretcher 8:54:29 Defibrillator and ground pads removed. Skin intact. End Study - Contrast Media Used In Study Contrast Total Opened (mL) Total Used (mL) Total Wasted (mL) Omnipaque 0 0 0 End Study - Maximum Contrast Load Max Contrast Load (mL) 408.8 End Study - Radiation Exposure Fluoro Time (minutes) 2.0 End Study - Patient Disposition Complications Transferred To Interventional Outcome No Telemetry Bed successful
== END 2018-05-01 17:05 | disposition home or self-care (01) ==
LOC: NEDA 17:01 → NEPC 17:01 → HCIS 21:35
PROVIDERS: ADMIT Internal Medicine; ATTEND Internal Medicine